=== PATIENT | male | born 1945 | race Caucasian/White ===

== ENCOUNTER 2017-06-08 23:00 | Emergency (ER) | payer MEDICARE, MEDICAID ==
[~2017-06-08] VITALS: Ht 185.4 cm; Wt 85.0 kg
[~2017-06-08 23:00] MED LIST: AMLO2.5T2 PO; BRIM5DRO16 EACHEYE; GABA-532 PO; LATA2.5D6 OP; LINA5TAB4 PO; ZOLP5TAB8 PO
[2017-06-08 23:03] VITALS: BP 151/88
[2017-06-09] MEDS ORDERED: erythromycin ophthalmic ointment 1gm tube RIGHTEYE ONE (00:05)
[2017-06-09] MEDS ORDERED: ERYT1OIN6 RIGHTEYE (00:06)
== END 2017-06-09 00:22 | disposition home or self-care (01) ==
LOC: ER 23:00
DX: H10.9 Unspecified conjunctivitis (principal); G62.9 Polyneuropathy, unspecified; I48.91 Unspecified atrial fibrillation; I10 Essential (primary) hypertension; Z88.5 Allergy status to narcotic agent; Z88.6 Allergy status to analgesic agent; Z88.8 Allergy status to other drugs, medicaments and biological substances; Z79.899 Other long term (current) drug therapy
CPT/HCPCS: 99283

== ENCOUNTER 2017-07-17 02:35 | Emergency (ER) | payer MEDICARE, MEDICAID ==
[~2017-07-17] VITALS: Ht 185.4 cm; Wt 84.4 kg
[2017-07-17] MEDS ORDERED: meclizine 12.5mg tablet PO ONE (03:20)
[2017-07-17] MEDS ORDERED: ondansetron/PF 4mg/2ml inj IV ONE (03:20)
[2017-07-17] MEDS ORDERED: acetaminophen 325mg tablet PO ONE (03:20)
[2017-07-17] MEDS ORDERED: bacitracin 15gm ointment TP ONE (04:00)
[2017-07-17 04:44] VITALS: BP 148/108
== END 2017-07-17 04:43 | disposition home or self-care (01) ==
LOC: ER 02:35
DX: S09.90XA Unspecified injury of head, initial encounter (principal); I48.91 Unspecified atrial fibrillation; I10 Essential (primary) hypertension; G62.9 Polyneuropathy, unspecified; Z88.5 Allergy status to narcotic agent; Z88.6 Allergy status to analgesic agent; W06.XXXA Fall from bed, initial encounter; Y93.89 Activity, other specified; Y92.89 Other specified places as the place of occurrence of the external cause; Y99.8 Other external cause status
CPT/HCPCS: 70450; 72125; 96374; 99284; J2405; J8597

== ENCOUNTER 2017-12-26 12:31 | Inpatient (IN) | payer MEDICARE, MEDICAID ==
[~2017-12-26] VITALS: Ht 185.4 cm; Wt 82.7 kg
[2017-12-26] MEDS ORDERED: normal saline 1000ML IV soln IV ONE (13:35)
[2017-12-26] MEDS ORDERED: CefTRIAXone 2gm/D5W 50ml 50 ML IV ONE (13:35)
[2017-12-26 14:00] LABS: BASOPHILS % (AUTO) 0.4 % (0-1); EOSINOPHILS # (AUTO) 0.1 X10'3 (0-0.9); EOSINOPHILS % (AUTO) 1.9 % (0-6); HEMOGLOBIN 15.2 g/dl (14.0-17.9); LYMPHOCYTES # (AUTO) 1.6 X10'3 (1.1-4.8); LYMPHOCYTES % (AUTO) 23.7 % (21-51); MEAN CORPUSCULAR HEMOGLOBIN 30.5 PG (27.0-31.0); MEAN CORPUSCULAR HGB CONC 33.8 % (33.0-36.5); MEAN CORPUSCULAR VOLUME 90.2 FL (78-98); MEAN PLATELET VOLUME 8.8 FL (7.4-10.4); MONOCYTES # (AUTO) 0.7 X10'3 (0-0.9); MONOCYTES % (AUTO) 9.8 % (2-12); NEUTROPHILS # (AUTO) 4.4 X10'3 (1.8-7.7); NEUTROPHILS % (AUTO) 64.2 % (42-75); PLATELET COUNT 166 X10'3 (140-440); RED BLOOD COUNT 4.98 X10'6 (4.70-6.10); RED CELL DISTRIBUTION WIDTH 14.1 % (11.5-14.5); WHITE BLOOD COUNT 6.9 X10'3 (4.5-11.0)
[2017-12-26 14:15] LABS: ALANINE AMINOTRANSFERASE 26 U/L (12-78); ALBUMIN 3.3 G/DL (3.4-5.0); ALBUMIN/GLOBULIN RATIO 0.8 (1.1-1.5); ALKALINE PHOSPHATASE 83 IU/L (46-116); ANION GAP 6 (8-16); ASPARTATE AMINO TRANSFERASE 17 U/L (10-37); BILIRUBIN,TOTAL 0.3 MG/DL (0.1-1.0); BLOOD UREA NITROGEN 16 MG/DL (7-18); BUN/CREATININE RATIO 15.2 (5.4-32.0); CALCIUM 8.9 MG/DL (8.5-10.1); CHLORIDE 103 MMOL/L (99-107); CREATININE 1.05 MG/DL (0.60-1.10); GLUCOSE 175 MG/DL (70-104); POTASSIUM 4.1 MMOL/L (3.5-5.1); SODIUM 140 MMOL/L (135-145); TOTAL CARBON DIOXIDE 30.6 MMOL/L (24-32); TOTAL PROTEIN 7.7 G/DL (6.4-8.2); eGFR 69 ML/MIN
[2017-12-26] MEDS ORDERED: METF-950 PO (15:47)
[2017-12-26] MEDS ORDERED: DABI150C PO (15:47)
[2017-12-26] MEDS ORDERED: BRIM5DRO2 RIGHTEYE (15:47)
[2017-12-26] MEDS ORDERED: dextrose ORAL solution 15 GM/59 ML bottle PO PRN ×2 (15:50)
[2017-12-26] MEDS ORDERED: magnesium 4gm in 100ml NS 100 ML IV PRN (15:50)
[2017-12-26] MEDS ORDERED: magnesium Cl slow-release 64mg tablet PO PRN (15:50)
[2017-12-26] MEDS ORDERED: dextrose 50%-water 50ml dispensing syringe IV PRN ×2 (15:50)
[2017-12-26] MEDS ORDERED: glucagon, human recombinant 1mg kit SUBCUT PRN (15:50)
[2017-12-26] MEDS ORDERED: potassium Cl 20 mEq SR tablet PO PRN ×2 (15:50)
[2017-12-26] MEDS ORDERED: potassium Cl 40MEQ/NS 500ml 500 ML IV PRN ×2 (15:50)
[2017-12-26] MEDS ORDERED: magnesium 1gm/100ml D5W IVPB 100 ML IV PRN (15:50)
[2017-12-26] MEDS ORDERED: MESSAGE TO PHARMACY PO ONE (15:50)
[2017-12-26] MEDS ORDERED: ondansetron/PF 4mg/2ml inj IV PRN ×2 (15:50→21:15)
[2017-12-26] MEDS ORDERED: mag hydrox/Alum hydrox/simeth 30ml oral suspension PO PRN (15:50)
[2017-12-26] MEDS ORDERED: acetaminophen 325mg tablet PO PRN ×2 (15:50)
[2017-12-26] MEDS ORDERED: magnesium hydroxide 30ml (MOM) UD suspension PO PRN (15:50)
[2017-12-26] MEDS: normal saline 1000ml 1,000 ML IV SCH (16:28)
[2017-12-26 16:33] LABS: HEMOGLOBIN A1C 7.1 % (4.5-6.2)
[2017-12-26] MEDS: HYDROcodone/acetaminophen 5mg/325mg tablet PO PRN ×2 (16:38→21:43)
[2017-12-26] MEDS: vancomycin inj 1,250 MG in normal saline 250ml IV soln 250 ML IV SCH (16:48)
[2017-12-26 18:04] VITALS: BP 136/91
[2017-12-26] MEDS: heparin, porcine 5000 units/ml vial SQ SCH ×2 (20:00→20:06)
[2017-12-26] MEDS: brimonidine 0.2% 5 ML ophthalmic drops EACHEYE SCH (20:05)
[2017-12-26] MEDS: timolol maleate 0.25% ophthalmic drops 10ml RIGHTEYE SCH (20:05)
[2017-12-26] MEDS: gabapentin 300mg capsule PO SCH (20:06)
[2017-12-26] MEDS: dabigatran 150mg capsule PO SCH (20:06)
[2017-12-26] MEDS: latanoprost 0.005% 2.5ml ophthalmic drops EACHEYE SCH ×2 (20:07→20:10)
[2017-12-26] MEDS: insulin glargine (Lantus) pen - multi-dose SQ SCH (21:00)
[2017-12-26] MEDS ORDERED: proCHLORperazine 10 MG/2 ml inj IV PRN (21:15)
[2017-12-26] MEDS: zolpidem 5mg tablet PO PRN (21:43)
[2017-12-26 22:00] VITALS: BP 136/91
[2017-12-27] MEDS: HYDROcodone/acetaminophen 5mg/325mg tablet PO PRN ×3 (04:32→21:21)
[2017-12-27] MEDS: vancomycin inj 1,250 MG in normal saline 250ml IV soln 250 ML IV SCH ×2 (04:32→18:54)
[2017-12-27 06:00] VITALS: BP 134/86
[2017-12-27] MEDS: K and/or MAG REPLACEMENT MC SCH (08:00)
[2017-12-27] MEDS: heparin, porcine 5000 units/ml vial SQ SCH ×2 (08:00→20:00)
[2017-12-27] MEDS: brimonidine 0.2% 5 ML ophthalmic drops EACHEYE SCH ×2 (08:00→20:20)
[2017-12-27] MEDS: dabigatran 150mg capsule PO SCH ×2 (08:43→20:20)
[2017-12-27] MEDS: gabapentin 300mg capsule PO SCH ×3 (08:43→20:20)
[2017-12-27] MEDS: timolol maleate 0.25% ophthalmic drops 10ml RIGHTEYE SCH ×2 (08:44→20:20)
[2017-12-27 10:00] VITALS: BP 142/84
[2017-12-27] MEDS: normal saline 1000ml 1,000 ML IV SCH (11:49)
[2017-12-27] MEDS: insulin Lispro (HumaLOG) vial - multi-dose SQ SCH ×2 (13:36→18:51)
[2017-12-27 18:00] VITALS: BP 129/84
[2017-12-27] MEDS: latanoprost 0.005% 2.5ml ophthalmic drops EACHEYE SCH (20:18)
[2017-12-27] MEDS: lactobacillus rhamnosus 10,000 MMU CELLS/CAPSULE PO SCH (20:20)
[2017-12-27] MEDS: insulin glargine (Lantus) pen - multi-dose SQ SCH (21:20)
[2017-12-27] MEDS: zolpidem 5mg tablet PO PRN (21:22)
[2017-12-27 22:00] VITALS: BP 130/90
[2017-12-28] MEDS: HYDROcodone/acetaminophen 5mg/325mg tablet PO PRN ×5 (02:15→21:45)
[2017-12-28] MEDS ORDERED: VANCOMYCIN LEVEL IV ONE (04:30)
[2017-12-28] MEDS: vancomycin inj 1,250 MG in normal saline 250ml IV soln 250 ML IV SCH ×2 (04:33→16:45)
[2017-12-28 05:35] LABS: MAGNESIUM 2.2 MG/DL (1.5-2.4); VANCOMYCIN,TROUGH 17.6 UG/ML (6.0-14.0)
[2017-12-28 06:00] VITALS: BP 124/76
[2017-12-28] MEDS: lactobacillus rhamnosus 10,000 MMU CELLS/CAPSULE PO SCH ×2 (07:04→19:08)
[2017-12-28] MEDS: dabigatran 150mg capsule PO SCH ×2 (07:04→19:08)
[2017-12-28] MEDS: gabapentin 300mg capsule PO SCH ×3 (07:05→21:46)
[2017-12-28] MEDS: heparin, porcine 5000 units/ml vial SQ SCH ×2 (07:06→19:20)
[2017-12-28] MEDS: brimonidine 0.2% 5 ML ophthalmic drops EACHEYE SCH ×2 (07:06→21:45)
[2017-12-28] MEDS: timolol maleate 0.25% ophthalmic drops 10ml RIGHTEYE SCH ×2 (07:06→19:20)
[2017-12-28] MEDS: normal saline 1000ml 1,000 ML IV SCH ×2 (07:49→16:46)
[2017-12-28] MEDS: K and/or MAG REPLACEMENT MC SCH (08:00)
[2017-12-28] MEDS: insulin Lispro (HumaLOG) vial - multi-dose SQ SCH ×3 (09:30→19:06)
[2017-12-28 10:00] VITALS: BP 152/98
[2017-12-28 18:00] VITALS: BP 135/82
[2017-12-28] MEDS: zolpidem 5mg tablet PO PRN ×2 (21:46→23:10)
[2017-12-28] MEDS: latanoprost 0.005% 2.5ml ophthalmic drops EACHEYE SCH (21:52)
[2017-12-28] MEDS: insulin glargine (Lantus) pen - multi-dose SQ SCH (21:55)
[2017-12-28 22:00] VITALS: BP 142/85
[2017-12-29] MEDS: vancomycin inj 1,250 MG in normal saline 250ml IV soln 250 ML IV SCH ×2 (05:46→17:17)
[2017-12-29 06:00] VITALS: BP 158/41
[2017-12-29] MEDS: K and/or MAG REPLACEMENT MC SCH (08:00)
[2017-12-29] MEDS: gabapentin 300mg capsule PO SCH ×3 (08:04→20:12)
[2017-12-29] MEDS: lactobacillus rhamnosus 10,000 MMU CELLS/CAPSULE PO SCH ×2 (08:04→20:13)
[2017-12-29] MEDS: dabigatran 150mg capsule PO SCH ×2 (08:04→20:12)
[2017-12-29] MEDS: timolol maleate 0.25% ophthalmic drops 10ml RIGHTEYE SCH ×2 (08:05→20:11)
[2017-12-29] MEDS: brimonidine 0.2% 5 ML ophthalmic drops EACHEYE SCH ×2 (08:05→20:12)
[2017-12-29] MEDS: heparin, porcine 5000 units/ml vial SQ SCH ×2 (08:12→20:13)
[2017-12-29] MEDS: insulin Lispro (HumaLOG) vial - multi-dose SQ SCH ×3 (09:34→18:59)
[2017-12-29] MEDS: HYDROcodone/acetaminophen 5mg/325mg tablet PO PRN ×3 (09:36→20:11)
[2017-12-29 10:56] VITALS: BP 122/75
[2017-12-29 18:00] VITALS: BP 138/78
[2017-12-29] MEDS: latanoprost 0.005% 2.5ml ophthalmic drops EACHEYE SCH (20:14)
[2017-12-29] MEDS: insulin glargine (Lantus) pen - multi-dose SQ SCH (21:40)
[2017-12-29 22:00] VITALS: BP 123/79
[2017-12-29] MEDS: zolpidem 5mg tablet PO PRN (22:30)
[2017-12-30] MEDS: HYDROcodone/acetaminophen 5mg/325mg tablet PO PRN ×4 (02:58→22:30)
[2017-12-30] MEDS: vancomycin inj 1,250 MG in normal saline 250ml IV soln 250 ML IV SCH ×2 (04:46→17:52)
[2017-12-30] MEDS: normal saline 1000ml 1,000 ML IV SCH ×2 (04:46→19:49)
[2017-12-30 05:00] VITALS: BP 147/92
[2017-12-30] MEDS: lactobacillus rhamnosus 10,000 MMU CELLS/CAPSULE PO SCH ×2 (07:49→22:30)
[2017-12-30] MEDS: gabapentin 300mg capsule PO SCH ×3 (07:50→22:32)
[2017-12-30] MEDS: timolol maleate 0.25% ophthalmic drops 10ml RIGHTEYE SCH ×2 (07:52→22:29)
[2017-12-30] MEDS: brimonidine 0.2% 5 ML ophthalmic drops EACHEYE SCH ×2 (08:00→22:31)
[2017-12-30] MEDS: K and/or MAG REPLACEMENT MC SCH (08:00)
[2017-12-30 08:11] LABS: MAGNESIUM 2.2 MG/DL (1.5-2.4)
[2017-12-30 08:36] LABS: ALBUMIN 3.1 G/DL (3.4-5.0); ANION GAP 8 (8-16); BLOOD UREA NITROGEN 17 MG/DL (7-18); BUN/CREATININE RATIO 16.7 (5.4-32.0); CALCIUM 8.3 MG/DL (8.5-10.1); CHLORIDE 104 MMOL/L (99-107); CREATININE 1.02 MG/DL (0.60-1.10); GLUCOSE 91 MG/DL (70-104); POTASSIUM 3.9 MMOL/L (3.5-5.1); SODIUM 140 MMOL/L (135-145); TOTAL CARBON DIOXIDE 28.4 MMOL/L (24-32); eGFR 72 ML/MIN
[2017-12-30 08:43] LABS: BASOPHILS % (AUTO) 0.6 % (0-1); EOSINOPHILS # (AUTO) 0.2 X10'3 (0-0.9); EOSINOPHILS % (AUTO) 3.1 % (0-6); HEMATOCRIT 41.9 % (42.0-52.0); HEMOGLOBIN 13.9 g/dl (14.0-17.9); LYMPHOCYTES # (AUTO) 1.6 X10'3 (1.1-4.8); LYMPHOCYTES % (AUTO) 28.9 % (21-51); MEAN CORPUSCULAR HEMOGLOBIN 30.3 PG (27.0-31.0); MEAN CORPUSCULAR HGB CONC 33.2 % (33.0-36.5); MEAN CORPUSCULAR VOLUME 91.3 FL (78-98); MONOCYTES # (AUTO) 0.6 X10'3 (0-0.9); MONOCYTES % (AUTO) 10.8 % (2-12); NEUTROPHILS # (AUTO) 3.2 X10'3 (1.8-7.7); NEUTROPHILS % (AUTO) 56.6 % (42-75); PLATELET COUNT 166 X10'3 (140-440); RED BLOOD COUNT 4.59 X10'6 (4.70-6.10); RED CELL DISTRIBUTION WIDTH 14.1 % (11.5-14.5); WHITE BLOOD COUNT 5.7 X10'3 (4.5-11.0)
[2017-12-30] MEDS: insulin Lispro (HumaLOG) vial - multi-dose SQ SCH ×4 (08:51→18:54)
[2017-12-30] MEDS: dabigatran 150mg capsule PO SCH ×2 (09:50→22:32)
[2017-12-30] MEDS: heparin, porcine 5000 units/ml vial SQ SCH ×2 (09:54→22:31)
[2017-12-30 10:00] VITALS: BP 148/92
[2017-12-30 18:00] VITALS: BP 129/90
[2017-12-30] MEDS: insulin glargine (Lantus) pen - multi-dose SQ SCH (20:44)
[2017-12-30] MEDS: latanoprost 0.005% 2.5ml ophthalmic drops EACHEYE SCH (21:00)
[2017-12-30] MEDS: zolpidem 5mg tablet PO PRN (22:30)
[2017-12-31] MEDS: vancomycin inj 1,250 MG in normal saline 250ml IV soln 250 ML IV SCH ×2 (04:31→17:00)
[2017-12-31 05:00] VITALS: BP 150/90
[2017-12-31 05:57] LABS: BASOPHILS % (AUTO) 0.5 % (0-1); EOSINOPHILS # (AUTO) 0.1 X10'3 (0-0.9); EOSINOPHILS % (AUTO) 3.2 % (0-6); HEMATOCRIT 41.5 % (42.0-52.0); HEMOGLOBIN 13.7 g/dl (14.0-17.9); LYMPHOCYTES # (AUTO) 1.5 X10'3 (1.1-4.8); MEAN CORPUSCULAR HEMOGLOBIN 30.2 PG (27.0-31.0); MEAN CORPUSCULAR VOLUME 91.6 FL (78-98); MEAN PLATELET VOLUME 8.4 FL (7.4-10.4); MONOCYTES # (AUTO) 0.6 X10'3 (0-0.9); MONOCYTES % (AUTO) 13.7 % (2-12); NEUTROPHILS % (AUTO) 47.6 % (42-75); PLATELET COUNT 158 X10'3 (140-440); RED BLOOD COUNT 4.53 X10'6 (4.70-6.10); RED CELL DISTRIBUTION WIDTH 14.2 % (11.5-14.5); WHITE BLOOD COUNT 4.2 X10'3 (4.5-11.0)
[2017-12-31 06:13] LABS: ALBUMIN 2.8 G/DL (3.4-5.0); ANION GAP 4 (8-16); BLOOD UREA NITROGEN 15 MG/DL (7-18); BUN/CREATININE RATIO 12.9 (5.4-32.0); CHLORIDE 105 MMOL/L (99-107); CREATININE 1.16 MG/DL (0.60-1.10); GLUCOSE 131 MG/DL (70-104); MAGNESIUM 2.2 MG/DL (1.5-2.4); POTASSIUM 4.4 MMOL/L (3.5-5.1); SODIUM 141 MMOL/L (135-145); TOTAL CARBON DIOXIDE 32.1 MMOL/L (24-32); eGFR 62 ML/MIN
[2017-12-31] MEDS: K and/or MAG REPLACEMENT MC SCH (06:50)
[2017-12-31] MEDS: brimonidine 0.2% 5 ML ophthalmic drops EACHEYE SCH ×2 (08:00→21:11)
[2017-12-31] MEDS: heparin, porcine 5000 units/ml vial SQ SCH ×2 (08:27→08:33)
[2017-12-31] MEDS: insulin Lispro (HumaLOG) vial - multi-dose SQ SCH ×3 (08:29→18:43)
[2017-12-31] MEDS: gabapentin 300mg capsule PO SCH ×3 (08:30→21:13)
[2017-12-31] MEDS: lactobacillus rhamnosus 10,000 MMU CELLS/CAPSULE PO SCH ×2 (08:30→21:13)
[2017-12-31] MEDS: dabigatran 150mg capsule PO SCH ×2 (08:30→21:10)
[2017-12-31] MEDS: timolol maleate 0.25% ophthalmic drops 10ml RIGHTEYE SCH ×2 (08:31→21:11)
[2017-12-31] MEDS: HYDROcodone/acetaminophen 5mg/325mg tablet PO PRN ×2 (08:36→14:11)
[2017-12-31 10:00] VITALS: BP 148/90
[2017-12-31] MEDS: normal saline 1000ml 1,000 ML IV SCH (15:49)
[2017-12-31 18:00] VITALS: BP 151/88
[2017-12-31] MEDS: latanoprost 0.005% 2.5ml ophthalmic drops EACHEYE SCH (21:00)
[2017-12-31] MEDS: zolpidem 5mg tablet PO PRN (21:13)
[2017-12-31] MEDS: insulin glargine (Lantus) pen - multi-dose SQ SCH (21:15)
[2017-12-31 22:00] VITALS: BP 153/100
[2018-01-01] MEDS: HYDROcodone/acetaminophen 5mg/325mg tablet PO PRN ×3 (02:31→10:38)
[2018-01-01] MEDS: normal saline 1000ml 1,000 ML IV SCH (02:34)
[2018-01-01] MEDS: vancomycin inj 1,250 MG in normal saline 250ml IV soln 250 ML IV SCH ×2 (04:25→17:20)
[2018-01-01 06:00] VITALS: BP 126/92
[2018-01-01 06:32] LABS: BASOPHILS % (AUTO) 0.5 % (0-1); EOSINOPHILS # (AUTO) 0.1 X10'3 (0-0.9); EOSINOPHILS % (AUTO) 3.1 % (0-6); HEMATOCRIT 42.9 % (42.0-52.0); HEMOGLOBIN 14.2 g/dl (14.0-17.9); LYMPHOCYTES # (AUTO) 1.4 X10'3 (1.1-4.8); LYMPHOCYTES % (AUTO) 29.8 % (21-51); MEAN CORPUSCULAR VOLUME 90.7 FL (78-98); MEAN PLATELET VOLUME 8.6 FL (7.4-10.4); MONOCYTES # (AUTO) 0.6 X10'3 (0-0.9); NEUTROPHILS # (AUTO) 2.6 X10'3 (1.8-7.7); NEUTROPHILS % (AUTO) 54.6 % (42-75); PLATELET COUNT 169 X10'3 (140-440); RED BLOOD COUNT 4.73 X10'6 (4.70-6.10); RED CELL DISTRIBUTION WIDTH 14.1 % (11.5-14.5); WHITE BLOOD COUNT 4.7 X10'3 (4.5-11.0)
[2018-01-01 06:41] LABS: ANION GAP 3 (8-16); BLOOD UREA NITROGEN 13 MG/DL (7-18); BUN/CREATININE RATIO 12.1 (5.4-32.0); CALCIUM 8.7 MG/DL (8.5-10.1); CHLORIDE 106 MMOL/L (99-107); CREATININE 1.07 MG/DL (0.60-1.10); GLUCOSE 139 MG/DL (70-104); MAGNESIUM 2.3 MG/DL (1.5-2.4); POTASSIUM 4.1 MMOL/L (3.5-5.1); SODIUM 140 MMOL/L (135-145); eGFR 68 ML/MIN
[2018-01-01] MEDS: gabapentin 300mg capsule PO SCH ×3 (07:47→22:07)
[2018-01-01] MEDS: lactobacillus rhamnosus 10,000 MMU CELLS/CAPSULE PO SCH ×2 (07:47→19:35)
[2018-01-01] MEDS: heparin, porcine 5000 units/ml vial SQ SCH ×2 (07:47→19:36)
[2018-01-01] MEDS: brimonidine 0.2% 5 ML ophthalmic drops EACHEYE SCH ×4 (07:47→21:11)
[2018-01-01] MEDS: K and/or MAG REPLACEMENT MC SCH (07:47)
[2018-01-01] MEDS: timolol maleate 0.25% ophthalmic drops 10ml RIGHTEYE SCH ×2 (07:47→19:36)
[2018-01-01] MEDS: dabigatran 150mg capsule PO SCH ×2 (07:50→19:35)
[2018-01-01] MEDS: insulin Lispro (HumaLOG) vial - multi-dose SQ SCH ×2 (09:09→19:35)
[2018-01-01 10:00] VITALS: BP 155/90
[2018-01-01] MEDS: HYDROcodone/acetaminophen 10/325mg tab PO PRN ×2 (15:06→22:11)
[2018-01-01 18:30] VITALS: BP 136/70
[2018-01-01] MEDS: latanoprost 0.005% 2.5ml ophthalmic drops EACHEYE SCH (22:10)
[2018-01-01] MEDS: insulin glargine (Lantus) pen - multi-dose SQ SCH (22:24)
[2018-01-01 22:29] VITALS: BP 154/99
[2018-01-02] MEDS: zolpidem 5mg tablet PO PRN ×2 (00:07→23:01)
[2018-01-02] MEDS: HYDROcodone/acetaminophen 10/325mg tab PO PRN ×5 (04:36→21:40)
[2018-01-02] MEDS: vancomycin inj 1,250 MG in normal saline 250ml IV soln 250 ML IV SCH ×2 (04:36→17:25)
[2018-01-02 06:00] VITALS: BP 168/98
[2018-01-02 07:05] LABS: ALBUMIN 3.1 G/DL (3.4-5.0); ANION GAP 4 (8-16); BLOOD UREA NITROGEN 10 MG/DL (7-18); BUN/CREATININE RATIO 9.8 (5.4-32.0); CALCIUM 8.5 MG/DL (8.5-10.1); CHLORIDE 105 MMOL/L (99-107); CREATININE 1.02 MG/DL (0.60-1.10); GLUCOSE 109 MG/DL (70-104); MAGNESIUM 2.4 MG/DL (1.5-2.4); SODIUM 140 MMOL/L (135-145); TOTAL CARBON DIOXIDE 30.8 MMOL/L (24-32); eGFR 72 ML/MIN
[2018-01-02 07:06] LABS: BASOPHILS % (AUTO) 0.5 % (0-1); EOSINOPHILS # (AUTO) 0.1 X10'3 (0-0.9); EOSINOPHILS % (AUTO) 3.2 % (0-6); HEMATOCRIT 42.8 % (42.0-52.0); HEMOGLOBIN 14.2 g/dl (14.0-17.9); LYMPHOCYTES # (AUTO) 1.4 X10'3 (1.1-4.8); LYMPHOCYTES % (AUTO) 30.1 % (21-51); MEAN CORPUSCULAR HEMOGLOBIN 30.3 PG (27.0-31.0); MEAN CORPUSCULAR HGB CONC 33.1 % (33.0-36.5); MEAN CORPUSCULAR VOLUME 91.6 FL (78-98); MEAN PLATELET VOLUME 8.4 FL (7.4-10.4); MONOCYTES # (AUTO) 0.6 X10'3 (0-0.9); MONOCYTES % (AUTO) 12.4 % (2-12); NEUTROPHILS # (AUTO) 2.5 X10'3 (1.8-7.7); NEUTROPHILS % (AUTO) 53.8 % (42-75); PLATELET COUNT 166 X10'3 (140-440); RED BLOOD COUNT 4.67 X10'6 (4.70-6.10); RED CELL DISTRIBUTION WIDTH 14.4 % (11.5-14.5); WHITE BLOOD COUNT 4.6 X10'3 (4.5-11.0)
[2018-01-02] MEDS: normal saline 1000ml 1,000 ML IV SCH (07:49)
[2018-01-02] MEDS: lactobacillus rhamnosus 10,000 MMU CELLS/CAPSULE PO SCH ×2 (07:56→20:10)
[2018-01-02] MEDS: brimonidine 0.2% 5 ML ophthalmic drops EACHEYE SCH ×2 (07:56→21:39)
[2018-01-02] MEDS: gabapentin 300mg capsule PO SCH ×3 (07:56→20:09)
[2018-01-02] MEDS: timolol maleate 0.25% ophthalmic drops 10ml RIGHTEYE SCH ×2 (07:57→21:39)
[2018-01-02] MEDS: dabigatran 150mg capsule PO SCH ×2 (07:57→20:10)
[2018-01-02] MEDS: heparin, porcine 5000 units/ml vial SQ SCH ×2 (07:58→20:11)
[2018-01-02] MEDS: K and/or MAG REPLACEMENT MC SCH (08:00)
[2018-01-02] MEDS: insulin Lispro (HumaLOG) vial - multi-dose SQ SCH ×2 (09:05→13:26)
[2018-01-02 10:00] VITALS: BP 143/96
[2018-01-02 11:52] VITALS: BP 144/98
[2018-01-02 11:57] VITALS: BP 121/54
[2018-01-02 18:00] VITALS: BP 152/91
[2018-01-02] MEDS ORDERED: iohexol 350MG/ML 100ml bottle IV ONE (19:10)
[2018-01-02] MEDS: hydrALAZINE 25 MG tablet PO SCH (20:10)
[2018-01-02] MEDS: insulin glargine (Lantus) pen - multi-dose SQ SCH (21:37)
[2018-01-02 22:00] VITALS: BP 139/86
[2018-01-02] MEDS: latanoprost 0.005% 2.5ml ophthalmic drops EACHEYE SCH (22:00)
[2018-01-03] MEDS: vancomycin inj 1,250 MG in normal saline 250ml IV soln 250 ML IV SCH (05:01)
[2018-01-03] MEDS: HYDROcodone/acetaminophen 10/325mg tab PO PRN ×2 (05:05→08:44)
[2018-01-03] MEDS: normal saline 1000ml 1,000 ML IV SCH (05:09)
[2018-01-03 06:00] VITALS: BP 153/109
[2018-01-03 06:02] LABS: BASOPHILS % (AUTO) 0.5 % (0-1); EOSINOPHILS # (AUTO) 0.1 X10'3 (0-0.9); EOSINOPHILS % (AUTO) 2.8 % (0-6); HEMATOCRIT 41.2 % (42.0-52.0); HEMOGLOBIN 13.9 g/dl (14.0-17.9); LYMPHOCYTES # (AUTO) 1.3 X10'3 (1.1-4.8); LYMPHOCYTES % (AUTO) 27.3 % (21-51); MEAN CORPUSCULAR HEMOGLOBIN 30.8 PG (27.0-31.0); MEAN CORPUSCULAR HGB CONC 33.8 % (33.0-36.5); MEAN CORPUSCULAR VOLUME 91.1 FL (78-98); MEAN PLATELET VOLUME 8.5 FL (7.4-10.4); MONOCYTES # (AUTO) 0.7 X10'3 (0-0.9); MONOCYTES % (AUTO) 14.5 % (2-12); NEUTROPHILS # (AUTO) 2.6 X10'3 (1.8-7.7); NEUTROPHILS % (AUTO) 54.9 % (42-75); PLATELET COUNT 153 X10'3 (140-440); RED BLOOD COUNT 4.52 X10'6 (4.70-6.10); RED CELL DISTRIBUTION WIDTH 14.1 % (11.5-14.5); WHITE BLOOD COUNT 4.7 X10'3 (4.5-11.0)
[2018-01-03 06:14] LABS: ALBUMIN 2.9 G/DL (3.4-5.0); ANION GAP 6 (8-16); BLOOD UREA NITROGEN 12 MG/DL (7-18); CALCIUM 8.4 MG/DL (8.5-10.1); CHLORIDE 105 MMOL/L (99-107); CREATININE 1.09 MG/DL (0.60-1.10); GLUCOSE 153 MG/DL (70-104); POTASSIUM 3.9 MMOL/L (3.5-5.1); SODIUM 141 MMOL/L (135-145); TOTAL CARBON DIOXIDE 30.4 MMOL/L (24-32); eGFR 66 ML/MIN
[2018-01-03] MEDS: K and/or MAG REPLACEMENT MC SCH (08:00)
[2018-01-03] MEDS: dabigatran 150mg capsule PO SCH (08:42)
[2018-01-03] MEDS: lactobacillus rhamnosus 10,000 MMU CELLS/CAPSULE PO SCH (08:43)
[2018-01-03] MEDS: heparin, porcine 5000 units/ml vial SQ SCH (08:43)
[2018-01-03] MEDS: hydrALAZINE 25 MG tablet PO SCH (08:43)
[2018-01-03] MEDS: timolol maleate 0.25% ophthalmic drops 10ml RIGHTEYE SCH (08:44)
[2018-01-03] MEDS: brimonidine 0.2% 5 ML ophthalmic drops EACHEYE SCH (08:44)
[2018-01-03] MEDS: insulin Lispro (HumaLOG) vial - multi-dose SQ SCH (08:46)
[2018-01-03] MEDS: gabapentin 300mg capsule PO SCH ×2 (08:53→13:18)
[2018-01-03 10:00] VITALS: BP 141/94
[2018-01-03] MEDS ORDERED: HYDR-4069 PO (12:55)
[2018-01-03] MEDS ORDERED: gadopentetate dimeglumine 7.5 MMOL/15 ML syringe IV ONE (14:20)
== END 2018-01-03 14:20 | disposition home health service (06) | DRG 603 ==
LOC: ER 12:31 → ED HOLD 15:49 → ORTHO 4S 17:49
PROVIDERS: ADMIT Internal Medicine; ATTEND Internal Medicine
PROC: B42G1ZZ Computerized Tomography (CT Scan) of Left Lower Extremity Arteries using Low Osmolar Contrast (ICD-10-PCS; principal; 2018-01-02)
PROC: BQ3FYZZ Magnetic Resonance Imaging (MRI) of Left Lower Leg using Other Contrast (ICD-10-PCS; 2018-01-03)
DX: L03.116 Cellulitis of left lower limb (principal); L97.829 Non-pressure chronic ulcer of other part of left lower leg with unspecified severity; E11.42 Type 2 diabetes mellitus with diabetic polyneuropathy; E11.621 Type 2 diabetes mellitus with foot ulcer; E11.51 Type 2 diabetes mellitus with diabetic peripheral angiopathy without gangrene; I10 Essential (primary) hypertension; I48.91 Unspecified atrial fibrillation; F17.200 Nicotine dependence, unspecified, uncomplicated; Z89.511 Acquired absence of right leg below knee; Z88.5 Allergy status to narcotic agent; Z79.899 Other long term (current) drug therapy; Z79.01 Long term (current) use of anticoagulants
CPT/HCPCS: 36415; 73590; 73706; 73720; 80048; 80053; 80202; 82948; 83036; 83605; 83735; 85025; 87040; 87070; 93922; 93926; 96365; 97116; 97161; 97530; 99285; A9579; G0378; J0696; J0780; J1644; J1815; J2405; J3370; J7030; Q9967

== ENCOUNTER 2018-01-13 15:43 | Emergency (ER) | payer MEDICARE, MEDICAID ==
[~2018-01-13] VITALS: Ht 185.4 cm; Wt 81.8 kg
[~2018-01-13 15:43] MED LIST changes: -AMLO2.5T2 PO; +BRIM5DRO2 RIGHTEYE; +DABI150C PO; +HYDR-4069 PO; +METF-950 PO
[2018-01-13 16:20] VITALS: BP 162/105
[2018-01-13 17:51] LABS: BASOPHILS % (AUTO) 0.5 % (0-1); EOSINOPHILS # (AUTO) 0.1 X10'3 (0-0.9); EOSINOPHILS % (AUTO) 1.9 % (0-6); HEMATOCRIT 46.3 % (42.0-52.0); HEMOGLOBIN 15.5 g/dl (14.0-17.9); LYMPHOCYTES # (AUTO) 1.8 X10'3 (1.1-4.8); LYMPHOCYTES % (AUTO) 25.1 % (21-51); MEAN CORPUSCULAR HEMOGLOBIN 30.5 PG (27.0-31.0); MEAN CORPUSCULAR HGB CONC 33.4 % (33.0-36.5); MEAN CORPUSCULAR VOLUME 91.3 FL (78-98); MEAN PLATELET VOLUME 8.8 FL (7.4-10.4); MONOCYTES # (AUTO) 0.7 X10'3 (0-0.9); MONOCYTES % (AUTO) 9.6 % (2-12); NEUTROPHILS # (AUTO) 4.5 X10'3 (1.8-7.7); NEUTROPHILS % (AUTO) 62.9 % (42-75); PLATELET COUNT 223 X10'3 (140-440); RED BLOOD COUNT 5.07 X10'6 (4.70-6.10); RED CELL DISTRIBUTION WIDTH 13.9 % (11.5-14.5); WHITE BLOOD COUNT 7.2 X10'3 (4.5-11.0)
[2018-01-13 18:09] LABS: ALANINE AMINOTRANSFERASE 35 U/L (12-78); ALBUMIN 3.6 G/DL (3.4-5.0); ALBUMIN/GLOBULIN RATIO 0.8 (1.1-1.5); ALKALINE PHOSPHATASE 79 IU/L (46-116); ANION GAP 8 (8-16); ASPARTATE AMINO TRANSFERASE 25 U/L (10-37); BILIRUBIN,TOTAL 0.4 MG/DL (0.1-1.0); BLOOD UREA NITROGEN 19 MG/DL (7-18); BUN/CREATININE RATIO 16.2 (5.4-32.0); CALCIUM 8.8 MG/DL (8.5-10.1); CHLORIDE 103 MMOL/L (99-107); CREATININE 1.17 MG/DL (0.60-1.10); GLUCOSE 132 MG/DL (70-104); MAGNESIUM 2.3 MG/DL (1.5-2.4); POTASSIUM 3.9 MMOL/L (3.5-5.1); SODIUM 140 MMOL/L (135-145); TOTAL CARBON DIOXIDE 29.2 MMOL/L (24-32); TOTAL PROTEIN 8.3 G/DL (6.4-8.2); eGFR 61 ML/MIN
[2018-01-13 18:16] LABS: INR 1.1 INR; PARTIAL THROMBOPLASTIN TIME 39 SECONDS (22-32); PROTHROMBIN TIME 11.3 SECONDS (9.0-12.0)
[2018-01-13] MEDS ORDERED: LEVO500T89 PO (18:31)
== END 2018-01-13 18:42 | disposition home or self-care (01) ==
LOC: ER 15:44
DX: I73.9 Peripheral vascular disease, unspecified (principal); L98.499 Non-pressure chronic ulcer of skin of other sites with unspecified severity; E11.42 Type 2 diabetes mellitus with diabetic polyneuropathy; I10 Essential (primary) hypertension; I48.91 Unspecified atrial fibrillation; Z89.511 Acquired absence of right leg below knee; Z88.6 Allergy status to analgesic agent
CPT/HCPCS: 36415; 80053; 83735; 85025; 85610; 85730; 93922; 93926; 99285

== ENCOUNTER 2018-01-24 13:49 | Inpatient (IN) | payer MEDICARE, MEDICAID ==
[~2018-01-24] VITALS: Ht 185.4 cm; Wt 78.0 kg
[~2018-01-24 13:49] MED LIST changes: +LEVO500T89 PO
[2018-01-24] MEDS ORDERED: morphine 4 MG/ML inj SYRINge IV ONE ×2 (16:25→18:50)
[2018-01-24] MEDS ORDERED: normal saline 1000ML IV soln IV ONE (16:25)
[2018-01-24] MEDS ORDERED: piperacillin/tazo 3.375gm/50ml 50 ML IV ONE (16:25)
[2018-01-24] MEDS ORDERED: vancomycin/NS 1 GM ADD-VANTAGE 250 ML IV ONE (16:25)
[2018-01-24] MEDS ORDERED: ondansetron/PF 4mg/2ml inj IV ONE (16:25)
[2018-01-24 16:53] LABS: BASOPHILS % (AUTO) 0.4 % (0-1); EOSINOPHILS # (AUTO) 0.2 X10'3 (0-0.9); EOSINOPHILS % (AUTO) 2.8 % (0-6); HEMATOCRIT 45.6 % (42.0-52.0); HEMOGLOBIN 15.3 g/dl (14.0-17.9); LYMPHOCYTES # (AUTO) 1.5 X10'3 (1.1-4.8); LYMPHOCYTES % (AUTO) 21.7 % (21-51); MEAN CORPUSCULAR HEMOGLOBIN 30.3 PG (27.0-31.0); MEAN CORPUSCULAR HGB CONC 33.6 % (33.0-36.5); MEAN CORPUSCULAR VOLUME 90.2 FL (78-98); MEAN PLATELET VOLUME 8.9 FL (7.4-10.4); MONOCYTES # (AUTO) 0.7 X10'3 (0-0.9); MONOCYTES % (AUTO) 10.6 % (2-12); NEUTROPHILS # (AUTO) 4.4 X10'3 (1.8-7.7); NEUTROPHILS % (AUTO) 64.5 % (42-75); PLATELET COUNT 163 X10'3 (140-440); RED BLOOD COUNT 5.05 X10'6 (4.70-6.10); RED CELL DISTRIBUTION WIDTH 13.7 % (11.5-14.5); WHITE BLOOD COUNT 6.9 X10'3 (4.5-11.0)
[2018-01-24 17:10] LABS: ALANINE AMINOTRANSFERASE 35 U/L (12-78); ALBUMIN 3.3 G/DL (3.4-5.0); ALBUMIN/GLOBULIN RATIO 0.8 (1.1-1.5); ALKALINE PHOSPHATASE 88 IU/L (46-116); ANION GAP 4 (8-16); ASPARTATE AMINO TRANSFERASE 20 U/L (10-37); BILIRUBIN,TOTAL 0.3 MG/DL (0.1-1.0); BLOOD UREA NITROGEN 14 MG/DL (7-18); BUN/CREATININE RATIO 12.5 (5.4-32.0); CHLORIDE 105 MMOL/L (99-107); CREATININE 1.12 MG/DL (0.60-1.10); GLUCOSE 121 MG/DL (70-104); MAGNESIUM 2.1 MG/DL (1.5-2.4); POTASSIUM 4.3 MMOL/L (3.5-5.1); SODIUM 139 MMOL/L (135-145); TOTAL CARBON DIOXIDE 30.5 MMOL/L (24-32); TOTAL PROTEIN 7.7 G/DL (6.4-8.2); eGFR 64 ML/MIN
[2018-01-24 17:12] LABS: INR 1.2 INR; PARTIAL THROMBOPLASTIN TIME 44 SECONDS (22-32); PROTHROMBIN TIME 11.7 SECONDS (9.0-12.0)
[2018-01-24 17:30] LABS: CLARITY,URINE CLEAR (Clear); COLOR,URINE YELLOW (Yellow); GLUCOSE, URINE 100 mg/dl (Neg); KETONES,URINE NEGATIVE (Neg); LEUKOCYTE ESTERASE ,URINE NEGATIVE (Neg); NITRITES, URINE NEGATIVE (Neg); OCCULT BLOOD,URINE TRACE-INTACT (Neg); PROTEIN,URINE NEGATIVE (Neg); UROBILINOGEN,URINE 0.2 E.U/dL (0.2-1.0)
[2018-01-24 17:35] LABS: UA COLLECTION TYPE CLN CATCH MIDSTREAM
[2018-01-24 17:36] LABS: BACTERIA,URINE NONE SEEN /HPF (Neg); MUCUS STRANDS FEW /LPF (Neg); RBC,URINE 0-2 /HPF (0-2); SQUAMOUS EPITHELIAL CELL,UR NONE SEEN /LPF (FEW); WBC,URINE 0-4 /HPF (0-4)
[2018-01-24] MEDS ORDERED: bisacodyl 10mg suppository rectal RC PRN (19:20)
[2018-01-24] MEDS ORDERED: metoclopramide 5 mg/ml inj IV PRN (19:20)
[2018-01-24] MEDS ORDERED: diphenhydrAMINE 50 mg/ml inj IV PRN (19:20)
[2018-01-24] MEDS ORDERED: acetaminophen 650mg rectal suppository RC PRN (19:20)
[2018-01-24] MEDS ORDERED: ondansetron/PF 4mg/2ml inj IV PRN (19:20)
[2018-01-24] MEDS ORDERED: mag hydrox/Alum hydrox/simeth 30ml oral suspension PO PRN (19:20)
[2018-01-24] MEDS ORDERED: magnesium hydroxide 30ml (MOM) UD suspension PO PRN (19:20)
[2018-01-24] MEDS ORDERED: HYDROmorphone 1 mg/ml syringe IV PRN (19:20)
[2018-01-24] MEDS ORDERED: acetaminophen 325mg tablet PO PRN ×2 (19:20)
[2018-01-24] MEDS ORDERED: diphenhydrAMINE 25mg capsule PO PRN (19:20)
[2018-01-24 19:55] LABS: PHOSPHORUS 3.7 MG/DL (2.3-4.5)
[2018-01-24] MEDS ORDERED: dorzolamide/timolol (Cosopt) ophthalmic drops 10ml bottle RIGHTEYE SCH (20:00)
[2018-01-24] MEDS: TIMOLOL RIGHTEYE SCH (20:00)
[2018-01-24] MEDS: docusate sod 100mg capsule PO SCH (20:00)
[2018-01-24] MEDS: DORZOLAMIDE RIGHTEYE SCH (20:00)
[2018-01-24] MEDS ORDERED: temazepam 15mg capsule PO PRN (21:00)
[2018-01-24] MEDS: gabapentin 300mg capsule PO SCH (21:03)
[2018-01-24] MEDS: normal saline 1000ml 1,000 ML IV SCH (21:04)
[2018-01-24] MEDS: piperacillin/tazo 4.5gm/100ml 100 ML IV SCH (21:04)
[2018-01-24] MEDS: famotidine 20mg tablet PO SCH (21:04)
[2018-01-24] MEDS: HYDROcodone/acetaminophen 10/325mg tab PO PRN (21:07)
[2018-01-24 21:30] VITALS: BP 132/93
[2018-01-24] MEDS: hydrALAZINE 25 MG tablet PO SCH (22:37)
[2018-01-24] MEDS: brimonidine 0.2% 5 ML ophthalmic drops EACHEYE SCH (22:37)
[2018-01-24] MEDS: dabigatran 150mg capsule PO SCH (22:37)
[2018-01-24] MEDS: zolpidem 5mg tablet PO PRN (22:46)
[2018-01-25 00:40] VITALS: BP 139/94
[2018-01-25] MEDS: zolpidem 5mg tablet PO PRN ×2 (01:23→21:08)
[2018-01-25 04:29] LABS: ALANINE AMINOTRANSFERASE 27 U/L (12-78); ALBUMIN 2.8 G/DL (3.4-5.0); ALBUMIN/GLOBULIN RATIO 0.7 (1.1-1.5); ALKALINE PHOSPHATASE 65 IU/L (46-116); ANION GAP 12 (8-16); BILIRUBIN,TOTAL 0.6 MG/DL (0.1-1.0); BLOOD UREA NITROGEN 13 MG/DL (7-18); BUN/CREATININE RATIO 12.1 (5.4-32.0); CALCIUM 8.1 MG/DL (8.5-10.1); CHLORIDE 107 MMOL/L (99-107); CHOL/HDL RATIO 5.8 (0.00-4.99); CHOLESTEROL 110 MG/DL (0-200); CREATININE 1.07 MG/DL (0.60-1.10); GLUCOSE 124 MG/DL (70-104); HDL CHOLESTEROL 19 MG/DL (35-60); LDL CHOLESTEROL 68 MG/DL (50-100); SODIUM 141 MMOL/L (135-145); TOTAL CARBON DIOXIDE 21.8 MMOL/L (24-32); TOTAL PROTEIN 6.7 G/DL (6.4-8.2); TRIGLYCERIDES 159 MG/DL (20-135); eGFR 68 ML/MIN
[2018-01-25 04:32] LABS: ASPARTATE AMINO TRANSFERASE 31 U/L (10-37); POTASSIUM 4.8 MMOL/L (3.5-5.1)
[2018-01-25 04:33] LABS: BASOPHILS % (AUTO) 0.4 % (0-1); EOSINOPHILS # (AUTO) 0.2 X10'3 (0-0.9); EOSINOPHILS % (AUTO) 2.4 % (0-6); HEMATOCRIT 42.2 % (42.0-52.0); LYMPHOCYTES # (AUTO) 1.7 X10'3 (1.1-4.8); LYMPHOCYTES % (AUTO) 24.8 % (21-51); MEAN CORPUSCULAR HEMOGLOBIN 30.3 PG (27.0-31.0); MEAN CORPUSCULAR HGB CONC 33.1 % (33.0-36.5); MEAN CORPUSCULAR VOLUME 91.5 FL (78-98); MEAN PLATELET VOLUME 9.5 FL (7.4-10.4); MONOCYTES # (AUTO) 0.6 X10'3 (0-0.9); MONOCYTES % (AUTO) 8.3 % (2-12); NEUTROPHILS # (AUTO) 4.3 X10'3 (1.8-7.7); NEUTROPHILS % (AUTO) 64.1 % (42-75); PLATELET COUNT 123 X10'3 (140-440); RED BLOOD COUNT 4.61 X10'6 (4.70-6.10); RED CELL DISTRIBUTION WIDTH 13.8 % (11.5-14.5); WHITE BLOOD COUNT 6.8 X10'3 (4.5-11.0)
[2018-01-25] MEDS: vancomycin/NS 1 GM ADD-VANTAGE 250 ML IV SCH ×2 (04:49→17:47)
[2018-01-25] MEDS: morphine 2 MG/ML inj. syringe IV PRN ×2 (05:40→17:53)
[2018-01-25 07:00] VITALS: BP 158/104
[2018-01-25] MEDS: hydrALAZINE 25 MG tablet PO SCH ×2 (07:27→19:51)
[2018-01-25] MEDS: gabapentin 300mg capsule PO SCH ×3 (07:27→21:08)
[2018-01-25] MEDS: docusate sod 100mg capsule PO SCH ×2 (07:27→20:00)
[2018-01-25] MEDS: HYDROcodone/acetaminophen 10/325mg tab PO PRN ×2 (07:28→21:08)
[2018-01-25] MEDS: TIMOLOL RIGHTEYE SCH (07:31)
[2018-01-25] MEDS: dabigatran 150mg capsule PO SCH ×2 (07:31→19:51)
[2018-01-25] MEDS: DORZOLAMIDE RIGHTEYE SCH (07:31)
[2018-01-25] MEDS: brimonidine 0.2% 5 ML ophthalmic drops EACHEYE SCH (07:31)
[2018-01-25] MEDS: piperacillin/tazo 4.5gm/100ml 100 ML IV SCH ×2 (08:17→19:51)
[2018-01-25] MEDS: normal saline 1000ml 1,000 ML IV SCH ×2 (08:17→17:47)
[2018-01-25 09:00] VITALS: BP 147/65
[2018-01-25 11:00] VITALS: BP 158/99
[2018-01-25 19:45] VITALS: BP 144/105
[2018-01-25] MEDS: timolol 0.5% ophthalmic solution 5ml bottle RIGHTEYE SCH (20:00)
[2018-01-25] MEDS: famotidine 20mg tablet PO SCH (21:08)
[2018-01-25] MEDS: brimonidine 0.2% 5 ML ophthalmic drops RIGHTEYE SCH (21:09)
[2018-01-25] MEDS: latanoprost 0.005% 2.5ml ophthalmic drops EACHEYE SCH (21:10)
[2018-01-26 00:35] VITALS: BP 142/95
[2018-01-26] MEDS ORDERED: VANCOMYCIN LEVEL IV ONE (04:30)
[2018-01-26] MEDS: normal saline 1000ml 1,000 ML IV SCH ×3 (05:43→18:47)
[2018-01-26] MEDS: vancomycin/NS 1 GM ADD-VANTAGE 250 ML IV SCH (05:43)
[2018-01-26 06:33] LABS: ALANINE AMINOTRANSFERASE 35 U/L (12-78); ALBUMIN 3.4 G/DL (3.4-5.0); ALBUMIN/GLOBULIN RATIO 0.8 (1.1-1.5); ALKALINE PHOSPHATASE 84 IU/L (46-116); ANION GAP 7 (8-16); ASPARTATE AMINO TRANSFERASE 26 U/L (10-37); BILIRUBIN,TOTAL 1.4 MG/DL (0.1-1.0); BLOOD UREA NITROGEN 13 MG/DL (7-18); BUN/CREATININE RATIO 10.9 (5.4-32.0); CALCIUM 8.4 MG/DL (8.5-10.1); CHLORIDE 103 MMOL/L (99-107); CREATININE 1.19 MG/DL (0.60-1.10); GLUCOSE 118 MG/DL (70-104); SODIUM 137 MMOL/L (135-145); TOTAL CARBON DIOXIDE 27.5 MMOL/L (24-32); TOTAL PROTEIN 7.7 G/DL (6.4-8.2); eGFR 60 ML/MIN
[2018-01-26 06:34] LABS: VANCOMYCIN,TROUGH 16.9 UG/ML (6.0-14.0)
[2018-01-26] MEDS: docusate sod 100mg capsule PO SCH ×2 (08:00→20:04)
[2018-01-26 08:08] VITALS: BP 152/93
[2018-01-26 08:57] LABS: BASOPHILS % (AUTO) 0.2 % (0-1); EOSINOPHILS # (AUTO) 0.1 X10'3 (0-0.9); EOSINOPHILS % (AUTO) 1.1 % (0-6); HEMATOCRIT 45.8 % (42.0-52.0); HEMOGLOBIN 15.3 g/dl (14.0-17.9); LYMPHOCYTES # (AUTO) 1.1 X10'3 (1.1-4.8); LYMPHOCYTES % (AUTO) 13.2 % (21-51); MEAN CORPUSCULAR HEMOGLOBIN 30.4 PG (27.0-31.0); MEAN CORPUSCULAR HGB CONC 33.5 % (33.0-36.5); MEAN CORPUSCULAR VOLUME 90.7 FL (78-98); MEAN PLATELET VOLUME 9.2 FL (7.4-10.4); MONOCYTES # (AUTO) 0.8 X10'3 (0-0.9); MONOCYTES % (AUTO) 9.3 % (2-12); NEUTROPHILS # (AUTO) 6.3 X10'3 (1.8-7.7); NEUTROPHILS % (AUTO) 76.2 % (42-75); PLATELET COUNT 119 X10'3 (140-440); RED BLOOD COUNT 5.05 X10'6 (4.70-6.10); RED CELL DISTRIBUTION WIDTH 13.6 % (11.5-14.5); WHITE BLOOD COUNT 8.3 X10'3 (4.5-11.0)
[2018-01-26] MEDS: piperacillin/tazo 4.5gm/100ml 100 ML IV SCH (09:48)
[2018-01-26] MEDS: dabigatran 150mg capsule PO SCH ×2 (09:49→20:04)
[2018-01-26] MEDS: gabapentin 300mg capsule PO SCH ×3 (09:49→21:12)
[2018-01-26] MEDS: hydrALAZINE 25 MG tablet PO SCH ×2 (09:49→20:03)
[2018-01-26] MEDS: brimonidine 0.2% 5 ML ophthalmic drops RIGHTEYE SCH ×2 (09:51→22:22)
[2018-01-26] MEDS: timolol 0.5% ophthalmic solution 5ml bottle RIGHTEYE SCH ×2 (09:53→22:22)
[2018-01-26 12:36] VITALS: BP 114/76
[2018-01-26] MEDS: HYDROcodone/acetaminophen 10/325mg tab PO PRN ×2 (14:41→20:20)
[2018-01-26 18:50] VITALS: BP 162/108
[2018-01-26] MEDS: lactobacillus rhamnosus 10,000 MMU CELLS/CAPSULE PO SCH (20:00)
[2018-01-26] MEDS: clindamycin 600mg/D5W 50ml 50 ML IV SCH (20:03)
[2018-01-26] MEDS: famotidine 20mg tablet PO SCH (21:12)
[2018-01-26] MEDS: latanoprost 0.005% 2.5ml ophthalmic drops EACHEYE SCH (22:41)
[2018-01-26] MEDS: zolpidem 5mg tablet PO PRN (23:31)
[2018-01-27] VITALS: BP 156/100
[2018-01-27] MEDS: clindamycin 600mg/D5W 50ml 50 ML IV SCH ×3 (01:56→14:00)
[2018-01-27 05:52] LABS: BASOPHILS % (AUTO) 0.4 % (0-1); EOSINOPHILS # (AUTO) 0.1 X10'3 (0-0.9); EOSINOPHILS % (AUTO) 1.5 % (0-6); HEMATOCRIT 38.8 % (42.0-52.0); HEMOGLOBIN 13.1 g/dl (14.0-17.9); LYMPHOCYTES # (AUTO) 0.8 X10'3 (1.1-4.8); LYMPHOCYTES % (AUTO) 11.5 % (21-51); MEAN CORPUSCULAR HEMOGLOBIN 30.5 PG (27.0-31.0); MEAN CORPUSCULAR HGB CONC 33.6 % (33.0-36.5); MEAN CORPUSCULAR VOLUME 90.6 FL (78-98); MEAN PLATELET VOLUME 9.3 FL (7.4-10.4); MONOCYTES # (AUTO) 0.7 X10'3 (0-0.9); MONOCYTES % (AUTO) 10.3 % (2-12); NEUTROPHILS % (AUTO) 76.3 % (42-75); PLATELET COUNT 106 X10'3 (140-440); RED BLOOD COUNT 4.28 X10'6 (4.70-6.10); RED CELL DISTRIBUTION WIDTH 13.5 % (11.5-14.5); WHITE BLOOD COUNT 6.6 X10'3 (4.5-11.0)
[2018-01-27 06:16] LABS: ALANINE AMINOTRANSFERASE 37 U/L (12-78); ALBUMIN 2.8 G/DL (3.4-5.0); ALBUMIN/GLOBULIN RATIO 0.7 (1.1-1.5); ALKALINE PHOSPHATASE 68 IU/L (46-116); ANION GAP 8 (8-16); ASPARTATE AMINO TRANSFERASE 27 U/L (10-37); BILIRUBIN,TOTAL 1.3 MG/DL (0.1-1.0); BLOOD UREA NITROGEN 10 MG/DL (7-18); CALCIUM 7.8 MG/DL (8.5-10.1); CHLORIDE 105 MMOL/L (99-107); CREATININE 1.11 MG/DL (0.60-1.10); GLUCOSE 122 MG/DL (70-104); POTASSIUM 3.6 MMOL/L (3.5-5.1); SODIUM 139 MMOL/L (135-145); TOTAL PROTEIN 6.7 G/DL (6.4-8.2); eGFR 65 ML/MIN
[2018-01-27 06:30] VITALS: BP 152/115
[2018-01-27] MEDS: normal saline 1000ml 1,000 ML IV SCH (07:20)
[2018-01-27] MEDS: timolol 0.5% ophthalmic solution 5ml bottle RIGHTEYE SCH (08:07)
[2018-01-27] MEDS: brimonidine 0.2% 5 ML ophthalmic drops RIGHTEYE SCH (08:07)
[2018-01-27] MEDS: lactobacillus rhamnosus 10,000 MMU CELLS/CAPSULE PO SCH (08:08)
[2018-01-27] MEDS: gabapentin 300mg capsule PO SCH ×2 (08:08→13:32)
[2018-01-27] MEDS: hydrALAZINE 25 MG tablet PO SCH (08:08)
[2018-01-27] MEDS: dabigatran 150mg capsule PO SCH (08:09)
[2018-01-27] MEDS: docusate sod 100mg capsule PO SCH (08:09)
[2018-01-27 11:55] VITALS: BP 156/98
[2018-01-27] MEDS ORDERED: lactose-reduced food (Ensure High Protein) 237ml bottle PO SCH (12:30)
[2018-01-27] MEDS ORDERED: CLIN150C2 PO (12:34)
[2018-01-27] MEDS: HYDROcodone/acetaminophen 10/325mg tab PO PRN (13:43)
== END 2018-01-27 14:00 | disposition home health service (06) | DRG 305 ==
LOC: ER 13:50 → SUR 3N 19:20
PROVIDERS: ADMIT Family Medicine; ATTEND Family Medicine
DX: I16.0 Hypertensive urgency (principal); L03.116 Cellulitis of left lower limb; I48.91 Unspecified atrial fibrillation; I10 Essential (primary) hypertension; E11.42 Type 2 diabetes mellitus with diabetic polyneuropathy; E11.65 Type 2 diabetes mellitus with hyperglycemia; E11.51 Type 2 diabetes mellitus with diabetic peripheral angiopathy without gangrene; I48.2 Chronic atrial fibrillation; B95.61 Methicillin susceptible Staphylococcus aureus infection as the cause of diseases classified elsewhere; Z89.511 Acquired absence of right leg below knee; Z88.5 Allergy status to narcotic agent; Z88.6 Allergy status to analgesic agent; Z88.8 Allergy status to other drugs, medicaments and biological substances; Z79.84 Long term (current) use of oral hypoglycemic drugs; Z79.899 Other long term (current) drug therapy; Z86.14 Personal history of Methicillin resistant Staphylococcus aureus infection
CPT/HCPCS: 36415; 71045; 80053; 80061; 80202; 81001; 82948; 83036; 83605; 83735; 83880; 84100; 84145; 85025; 85610; 85730; 87040; 87070; 87077; 87186; 93005; 93971; 96365; 96367; 96375; 96376; 99285; G0378; J2270; J2405; J2543; J3370; J3490; J7030

== ENCOUNTER 2018-03-27 10:15 | Emergency (ER) | payer MEDICARE, MEDICAID ==
[~2018-03-27] VITALS: Ht 185.4 cm; Wt 81.4 kg
[~2018-03-27 10:15] MED LIST changes: -BRIM5DRO16 EACHEYE; -LEVO500T89 PO
[2018-03-27] MEDS ORDERED: ketorolac tromethamine 15mg/ml inj. IM ONE (12:45)
--- NOTE | 2018-03-27 13:11 | NUR ---
US TECH AT BEDSIDE.
[2018-03-27] MEDS ORDERED: CEPH-572 PO (13:30)
[2018-03-27 13:53] VITALS: BP 156/97
== END 2018-03-27 13:54 | disposition home or self-care (01) ==
LOC: ER 10:16
DX: L72.0 Epidermal cyst (principal); L03.221 Cellulitis of neck; I10 Essential (primary) hypertension; I48.91 Unspecified atrial fibrillation; E11.21 Type 2 diabetes mellitus with diabetic nephropathy; Z98.890 Other specified postprocedural states; Z89.512 Acquired absence of left leg below knee; Z89.511 Acquired absence of right leg below knee; Z88.5 Allergy status to narcotic agent; Z88.6 Allergy status to analgesic agent; Z79.84 Long term (current) use of oral hypoglycemic drugs; Z79.899 Other long term (current) drug therapy
CPT/HCPCS: 76881; 96372; 99284; J1885